=== PATIENT | male | born 1965 | race Caucasian/White ===

== ENCOUNTER 2021-06-24 09:46 | Observation (INO) | payer OTHER ==
[~2021-06-24] VITALS: Ht 182.9 cm; Wt 123.8 kg
[~2021-06-24 09:46] MED LIST: LISINOPRIL10 MG PO; OMEPRAZOLE40 MG PO
[2021-06-24] MEDS ORDERED: ASPIRIN 81 MG CHEW TAB PO NR (10:15)
[2021-06-24] MEDS ORDERED: ENOXAPARIN SODIUM INJ 100 MG/ML SYR SC NR (10:15)
[2021-06-24] MEDS: DILTIAZEM HCL 5 MG/ML 5 ML VIAL IV NR ×3 (10:45→11:10)
[2021-06-24] MEDS ORDERED: ASPIRIN 81 MG ENTERIC COATED PO ONE (10:47)
[2021-06-24] MEDS ORDERED: METOPROLOL TARTRATE INJ 1 MG/ML VIAL ONE (10:56)
[2021-06-24] MEDS ORDERED: SODIUM CHLORIDE 0.9% 1000ML 1,000 ML ONE (10:56)
[2021-06-24 11:00] LABS: HEMATOCRIT 42.9 % (38.2-49.6); HEMOGLOBIN 13.8 g/dL (14.0-18.0); MEAN CORPUSCULAR VOLUME 89.4 fL (81-99)
[2021-06-24 11:01] LABS: BASOPHILS # (AUTO) 0.1 (0.0-0.1); EOSINOPHILS # (AUTO) 0.2 (0.0-0.4); EOSINOPHILS % 1.9 % (0.0-6.0); LYMPHOCYTES # (AUTO) 2.7 (1.0-3.2); LYMPHOCYTES % 34.1 % (18.0-39.1); MEAN CORPUSCULAR HEMOGLOBIN 28.8 pg (28-32); MEAN CORPUSCULAR HGB CONC 32.2 g/dL (31-35); MONOCYTES # (AUTO) 0.6 (0.2-0.8); NEUTROPHILS # (AUTO) 4.3 (2.1-6.9); NEUTROPHILS % 54.7 % (38.7-80.0); PLATELET COUNT 218 x10e3/uL (140-360)
[2021-06-24 11:10] LABS: INR 1.04; PARTIAL THROMBOPLASTIN TIME 28.9 seconds (23.8-35.5); PROTHROMBIN TIME 13.8 seconds (11.9-14.5)
[2021-06-24] MEDS: SODIUM CHLORIDE 0.9% 1000ML 1,000 ML IV SCH ×3 (11:10→15:51)
[2021-06-24] MEDS ORDERED: METOPROLOL TARTRATE INJ 1 MG/ML VIAL IV NR ×2 (11:15→13:15)
[2021-06-24 12:10] LABS: ANION GAP 13.9 mmol/L (8-16); CALCIUM 8.9 mg/dL (8.4-10.2); CREATININE, SERUM 1.17 mg/dL (0.72-1.25); MAGNESIUM 1.9 MG/DL (1.3-2.1); POTASSIUM 3.9 mmol/L (3.5-5.1)
[2021-06-24 12:11] LABS: ALBUMIN/GLOBULIN RATIO 1.1 (0.8-2.0); CREATINE KINASE MB 5.3 ng/mL (0-5.0); THYROID STIMULATING HORMONE 2.717 uIU/mL (0.350-4.940)
[2021-06-24] MEDS ORDERED: METOPROLOL TARTRATE 25 MG TAB PO NR (13:15)
[2021-06-24] MEDS ORDERED: ONDANSETRON HCL INJ 2MG/ML 2ML 2 MG/ML VIAL IV PRN (13:30)
[2021-06-24] MEDS ORDERED: METOPROLOL TARTRATE 25 MG TAB PO SCH (14:00)
[2021-06-24 15:19] VITALS: BP 134/108
[2021-06-24 15:26] VITALS: BP 134/104
[2021-06-24 16:58] VITALS: BP 161/106
[2021-06-24] MEDS: AMIODARONE HCL 200 MG TAB PO SCH (16:59)
[2021-06-24] MEDS ORDERED: METOPROLOL TARTRATE 50 MG TAB PO SCH (17:00)
[2021-06-24 18:16] LABS: CREATINE KINASE MB 5.1 ng/mL (0-5.0)
[2021-06-24 20:00] VITALS: BP 162/113
[2021-06-24 21:00] VITALS: BP 162/113
[2021-06-24] MEDS: ENOXAPARIN SODIUM INJ 100 MG/ML SYR SC SCH (22:30)
[2021-06-25] VITALS: BP 136/93
[2021-06-25] MEDS: METOPROLOL TARTRATE 50 MG TAB PO SCH ×2 (00:33→08:31)
[2021-06-25 04:00] VITALS: BP 123/88
[2021-06-25 06:18] LABS: BASOPHILS # (AUTO) 0.1 (0.0-0.1); BASOPHILS % 0.9 % (0.0-1.0); EOSINOPHILS # (AUTO) 0.2 (0.0-0.4); EOSINOPHILS % 2.8 % (0.0-6.0); HEMATOCRIT 42.6 % (38.2-49.6); HEMOGLOBIN 13.8 g/dL (14.0-18.0); LYMPHOCYTES # (AUTO) 2.8 (1.0-3.2); LYMPHOCYTES % 40.8 % (18.0-39.1); MEAN CORPUSCULAR HEMOGLOBIN 28.4 pg (28-32); MEAN CORPUSCULAR HGB CONC 32.4 g/dL (31-35); MEAN CORPUSCULAR VOLUME 87.7 fL (81-99); MONOCYTES # (AUTO) 0.4 (0.2-0.8); MONOCYTES % 6.1 % (4.4-11.3); NEUTROPHILS # (AUTO) 3.4 (2.1-6.9); NEUTROPHILS % 49.1 % (38.7-80.0); PLATELET COUNT 213 x10e3/uL (140-360); RED BLOOD COUNT 4.86 x10e6/uL (4.3-5.7); RED CELL DISTRIBUTION WIDTH 12.8 % (11.7-14.4)
[2021-06-25 07:46] LABS: ALBUMIN 3.7 g/dL (3.5-5.0); ALBUMIN/GLOBULIN RATIO 1.2 (0.8-2.0); ANION GAP 12.9 mmol/L (8-16); CALCIUM 8.5 mg/dL (8.4-10.2); CHOL/HDL RATIO 3.6 (3.9-4.7); POTASSIUM 3.9 mmol/L (3.5-5.1)
[2021-06-25 07:52] VITALS: BP 147/97
[2021-06-25 07:58] VITALS: BP 147/97
[2021-06-25] MEDS: ENOXAPARIN SODIUM INJ 100 MG/ML SYR SC SCH (08:31)
[2021-06-25] MEDS: AMIODARONE HCL 200 MG TAB PO SCH (08:31)
[2021-06-25] MEDS ORDERED: ASPIRIN 81 MG ENTERIC COATED PO SCH ×2 (09:00)
[2021-06-25 09:53] VITALS: BP 147/97
[2021-06-25 11:02] VITALS: BP 145/99
[2021-06-25] MEDS ORDERED: ASPIRIN EC81 MG PO (12:01)
[2021-06-25] MEDS ORDERED: ONDANSETRON HCL 4 MG ORAL DISINTEGRATING TAB PO PRN (13:30)
[2021-06-25] MEDS ORDERED: METOPROLOL TARTRATE 50 MG TAB PO SCH (17:00)
[2021-06-26] MEDS ORDERED: AMIODARONE HCL 200 MG TAB PO SCH (09:00)
== END 2021-06-25 14:10 | disposition home or self-care (01) ==
LOC: ER 10:00 → ERHOLD 13:41 → INTOOBSV 13:41 → MED/SURG 15:03
PROVIDERS: ADMIT Internal Medicine; ATTEND Internal Medicine
DX: I48.0 Paroxysmal atrial fibrillation (principal); Z20.822 Contact with and (suspected) exposure to COVID-19; I10 Essential (primary) hypertension; Z87.891 Personal history of nicotine dependence; E66.9 Obesity, unspecified; Z68.37 Body mass index [BMI] 37.0-37.9, adult
CPT/HCPCS: 36415 ×2; 71045; 80053 ×2; 80061; 82550 ×2; 82553 ×2; 83735; 83880; 84443; 84484 ×2; 85025 ×2; 85610; 85730; 93005; 93306; 99284; G0378 ×2; J1650 ×2; J7030; U0002

== ENCOUNTER 2022-04-10 20:12 | Inpatient (IN) | payer OTHER ==
[~2022-04-10] VITALS: Ht 182.9 cm; Wt 122.5 kg
[~2022-04-10 20:12] MED LIST changes: +ASPIRIN EC81 MG PO
[2022-04-10] MEDS ORDERED: IBUPROFEN 600 MG TAB PO STA (20:51)
[2022-04-10 20:55] LABS: BASOPHILS % 0.3 % (0.0-1.0); EOSINOPHILS % 0.1 % (0.0-6.0); HEMATOCRIT 39.3 % (38.2-49.6); HEMOGLOBIN 13.1 g/dL (14.0-18.0); LYMPHOCYTES # (AUTO) 2.1 (1.0-3.2); LYMPHOCYTES % 28.1 % (18.0-39.1); MEAN CORPUSCULAR HEMOGLOBIN 28.7 pg (28-32); MEAN CORPUSCULAR HGB CONC 33.3 g/dL (31-35); MONOCYTES # (AUTO) 0.6 (0.2-0.8); MONOCYTES % 7.5 % (4.4-11.3); NEUTROPHILS # (AUTO) 4.7 (2.1-6.9); NEUTROPHILS % 63.3 % (38.7-80.0); PLATELET COUNT 272 x10e3/uL (140-360); RED BLOOD COUNT 4.57 x10e6/uL (4.3-5.7); RED CELL DISTRIBUTION WIDTH 13.7 % (11.7-14.4)
[2022-04-10 21:08] LABS: ALBUMIN 2.7 g/dL (3.5-5.0); ALBUMIN/GLOBULIN RATIO 0.5 (0.8-2.0); ANION GAP 17.3 mmol/L (8-16); CALCIUM 8.5 mg/dL (8.4-10.2); CREATININE, SERUM 0.87 mg/dL (0.72-1.25); POTASSIUM 3.3 mmol/L (3.5-5.1)
[2022-04-10 21:15] LABS: CREATINE KINASE MB 1.4 ng/mL (0-5.0)
[2022-04-10] MEDS ORDERED: SODIUM CHLORIDE 0.9% 1000ML 1,000 ML IV STA ×2 (21:31→21:42)
[2022-04-10 21:38] LABS: LYMPHOCYTES % (MANUAL) 27 % (19-48); MONOCYTES % (MANUAL) 6 % (3.4-9.0); NEUTROPHILS % (MANUAL) 64 % (40-74)
[2022-04-10 21:39] LABS: PLATELET ESTIMATE ADEQUATE; PLATELET MORPHOLOGY COMMENT FEW LARGE; RBC MORPHOLOGY COMMENT NORMAL
[2022-04-10 21:46] LABS: AMPHETAMINES SCREEN,URINE NEGATIVE (NEGATIVE); BENZODIAZEPINES SCREEN,URINE NEGATIVE (NEGATIVE); CLARITY,URINE SL CLOUDY (CLEAR); COLOR,URINE AMBER (YELLOW); KETONES,URINE TRACE (NEGATIVE); LEUKOCYTE ESTERASE ,URINE NEGATIVE (NEGATIVE); NITRITE,URINE NEGATIVE (NEGATIVE); PHENCYCLIDINE SCREEN,URINE NEGATIVE (NEGATIVE); PROTEIN,URINE DIPSTICK 2+ (NEGATIVE)
[2022-04-10 21:59] LABS: AMORPHOUS SEDIMENT,URINE FEW (FEW); BACTERIA,URINE FEW /HPF; EPITHELIAL CELLS,URINE FEW /LPF; MUCUS,URINE MANY (RARE); RBC,URINE 0-5 /HPF (0-5); WBC,URINE (MAN) 0-5 /HPF (0-5)
[2022-04-11] VITALS (10 sets, daily range): BP systolic 144–172; BP diastolic 70–127
[2022-04-11] MEDS: SODIUM CHLORIDE 0.9% 1000ML 1,000 ML IV SCH ×3 (01:23→15:15)
[2022-04-11] MEDS ORDERED: METOPROLOL SUC200 MG PO (02:32)
[2022-04-11] MEDS: METOPROLOL TARTRATE INJ 1 MG/ML VIAL IV PRN ×3 (06:30→07:25)
[2022-04-11 08:27] LABS: BASOPHILS % 0.4 % (0.0-1.0); EOSINOPHILS # (AUTO) 0.1 (0.0-0.4); HEMATOCRIT 38.1 % (38.2-49.6); HEMOGLOBIN 12.4 g/dL (14.0-18.0); LYMPHOCYTES # (AUTO) 1.4 (1.0-3.2); LYMPHOCYTES % 20.6 % (18.0-39.1); MEAN CORPUSCULAR HEMOGLOBIN 28.6 pg (28-32); MEAN CORPUSCULAR HGB CONC 32.5 g/dL (31-35); MEAN CORPUSCULAR VOLUME 87.8 fL (81-99); MONOCYTES # (AUTO) 0.5 (0.2-0.8); NEUTROPHILS # (AUTO) 4.9 (2.1-6.9); NEUTROPHILS % 70.6 % (38.7-80.0); PLATELET COUNT 262 x10e3/uL (140-360); RED BLOOD COUNT 4.34 x10e6/uL (4.3-5.7); RED CELL DISTRIBUTION WIDTH 13.8 % (11.7-14.4)
[2022-04-11 08:57] LABS: ALBUMIN 2.6 g/dL (3.5-5.0); ALBUMIN/GLOBULIN RATIO 0.5 (0.8-2.0); ANION GAP 13.5 mmol/L (8-16); CALCIUM 8.2 mg/dL (8.4-10.2); CREATININE, SERUM 0.77 mg/dL (0.72-1.25); POTASSIUM 3.5 mmol/L (3.5-5.1)
[2022-04-11 08:58] LABS: CREATINE KINASE MB 2.5 ng/mL (0-5.0)
[2022-04-11] MEDS ORDERED: METOPROLOL SUCCINATE 50 MG TAB XL PO SCH (09:00)
[2022-04-11] MEDS: ASPIRIN 81 MG ENTERIC COATED PO SCH (09:22)
[2022-04-11] MEDS: PANTOPRAZOLE SOD 40 MG TABEC PO SCH (09:23)
[2022-04-11] MEDS ORDERED: SODIUM CHLORIDE 0.9% 250ML 500 ML ONE (09:25)
[2022-04-11] MEDS ORDERED: GUAIFENESIN/DEXTROMETHORPHAN LIQD 5 ML UDC PO PRN (12:45)
[2022-04-11] MEDS ORDERED: ACETAMINOPHEN 325 MG TAB PO PRN (12:45)
[2022-04-11] MEDS ORDERED: ONDANSETRON HCL INJ 2MG/ML 2ML 2 MG/ML VIAL IV PRN (12:45)
[2022-04-11] MEDS ORDERED: POTASSIUM CHLORIDE 20 MEQ TAB CR PO NR (13:00)
[2022-04-11] MEDS: METOPROLOL SUCCINATE 50 MG TAB XL PO SCH (13:30)
[2022-04-11] MEDS: ENOXAPARIN SODIUM INJ 100 MG/ML SYR SC SCH (13:59)
[2022-04-11 17:40] LABS: CREATINE KINASE MB 1.5 ng/mL (0-5.0)
[2022-04-11] MEDS: HYDRALAZINE HCL 20 MG/ML VIAL IV PRN (20:10)
[2022-04-11] MEDS: LISINOPRIL 10 MG TAB PO SCH (20:11)
[2022-04-11] MEDS ORDERED: MELATONIN 3 MG TAB PO PRN (21:00)
[2022-04-12] VITALS (15 sets, daily range): BP systolic 119–155; BP diastolic 67–107
[2022-04-12] MEDS: ENOXAPARIN SODIUM INJ 100 MG/ML SYR SC SCH ×2 (02:49→14:00)
[2022-04-12] MEDS: SODIUM CHLORIDE 0.9% 1000ML 1,000 ML IV SCH (06:26)
[2022-04-12 07:07] LABS: BASOPHILS % 0.6 % (0.0-1.0); EOSINOPHILS % 0.6 % (0.0-6.0); HEMATOCRIT 37.3 % (38.2-49.6); HEMOGLOBIN 12.1 g/dL (14.0-18.0); LYMPHOCYTES # (AUTO) 1.3 (1.0-3.2); LYMPHOCYTES % 18.4 % (18.0-39.1); MEAN CORPUSCULAR HEMOGLOBIN 28.3 pg (28-32); MEAN CORPUSCULAR HGB CONC 32.4 g/dL (31-35); MEAN CORPUSCULAR VOLUME 87.1 fL (81-99); MONOCYTES # (AUTO) 0.5 (0.2-0.8); NEUTROPHILS # (AUTO) 5.1 (2.1-6.9); NEUTROPHILS % 72.8 % (38.7-80.0); PLATELET COUNT 299 x10e3/uL (140-360); RED BLOOD COUNT 4.28 x10e6/uL (4.3-5.7)
[2022-04-12 07:32] LABS: MAGNESIUM 1.9 MG/DL (1.3-2.1)
[2022-04-12 07:44] LABS: ALBUMIN 2.4 g/dL (3.5-5.0); ALBUMIN/GLOBULIN RATIO 0.5 (0.8-2.0); ANION GAP 17.5 mmol/L (8-16); CALCIUM 8.4 mg/dL (8.4-10.2); CREATININE, SERUM 0.78 mg/dL (0.72-1.25); POTASSIUM 3.5 mmol/L (3.5-5.1)
[2022-04-12 07:45] LABS: FREE THYROXINE INDEX 2.1443 (1.4-3.8); THYROID STIMULATING HORMONE 1.744 uIU/mL (0.350-4.940)
[2022-04-12] MEDS ORDERED: DIGOXIN 0.25 MG TAB PO ONE (08:00)
[2022-04-12] MEDS ORDERED: DILTIAZEM HCL 60 MG TAB PO SCH (08:00)
[2022-04-12] MEDS: MULTIVITAMINS/MINERALS TAB PO SCH (08:05)
[2022-04-12] MEDS: ASPIRIN 81 MG ENTERIC COATED PO SCH (08:07)
[2022-04-12] MEDS: METOPROLOL SUCCINATE 50 MG TAB XL PO SCH (08:09)
[2022-04-12] MEDS: PANTOPRAZOLE SOD 40 MG TABEC PO SCH (08:09)
[2022-04-12] MEDS ORDERED: METHYLPREDNISOLONE SOD SUCC 125 MG/2ML VIAL IV NR (09:15)
[2022-04-12] MEDS: IPRATROPIUM BROMIDE 0.02% 2.5 ML NEB NEB SCH ×2 (15:05→18:55)
[2022-04-12] MEDS: DILTIAZEM HCL 60 MG TAB PO SCH ×2 (16:15→21:19)
[2022-04-12] MEDS ORDERED: POTASSIUM CHLORIDE 20 MEQ TAB CR PO NR (16:30)
[2022-04-12] MEDS ORDERED: FUROSEMIDE INJ 10 MG/ML 4 ML VIAL IV NR (16:30)
[2022-04-12] MEDS: LISINOPRIL 10 MG TAB PO SCH (21:19)
[2022-04-13] VITALS (33 sets, daily range): BP systolic 115–164; BP diastolic 71–107
[2022-04-13] MEDS: ENOXAPARIN SODIUM INJ 100 MG/ML SYR SC SCH ×3 (01:49→17:06)
[2022-04-13 04:50] LABS: BASOPHILS % 0.1 % (0.0-1.0); HEMATOCRIT 35.1 % (38.2-49.6); HEMOGLOBIN 11.4 g/dL (14.0-18.0); LYMPHOCYTES % 10.4 % (18.0-39.1); MEAN CORPUSCULAR HGB CONC 32.5 g/dL (31-35); MEAN CORPUSCULAR VOLUME 86.2 fL (81-99); MONOCYTES # (AUTO) 0.5 (0.2-0.8); MONOCYTES % 4.8 % (4.4-11.3); NEUTROPHILS % 84.2 % (38.7-80.0); PLATELET COUNT 373 x10e3/uL (140-360); RED BLOOD COUNT 4.07 x10e6/uL (4.3-5.7); RED CELL DISTRIBUTION WIDTH 13.7 % (11.7-14.4)
[2022-04-13 05:10] LABS: ALBUMIN 2.2 g/dL (3.5-5.0); ALBUMIN/GLOBULIN RATIO 0.4 (0.8-2.0); ANION GAP 14.8 mmol/L (8-16); CALCIUM 8.3 mg/dL (8.4-10.2); CREATININE, SERUM 0.79 mg/dL (0.72-1.25); POTASSIUM 3.8 mmol/L (3.5-5.1)
[2022-04-13] MEDS: DILTIAZEM HCL 60 MG TAB PO SCH ×3 (05:24→21:35)
[2022-04-13 05:37] LABS: CHOL/HDL RATIO 4.3 (3.9-4.7)
[2022-04-13 05:57] LABS: THYROID STIMULATING HORMONE 1.48 uIU/mL (0.350-4.940)
[2022-04-13] MEDS ORDERED: POTASSIUM CHLORIDE 20 MEQ TAB CR PO ONE (07:00)
[2022-04-13] MEDS: IPRATROPIUM BROMIDE 0.02% 2.5 ML NEB NEB SCH ×3 (07:15→18:54)
[2022-04-13] MEDS: MULTIVITAMINS/MINERALS TAB PO SCH (08:11)
[2022-04-13] MEDS: PANTOPRAZOLE SOD 40 MG TABEC PO SCH (08:11)
[2022-04-13] MEDS: ASPIRIN 81 MG ENTERIC COATED PO SCH (08:11)
[2022-04-13] MEDS: METOPROLOL SUCCINATE 50 MG TAB XL PO SCH (08:12)
[2022-04-13] MEDS: DIGOXIN 0.25 MG TAB PO SCH (08:12)
[2022-04-13] MEDS ORDERED: Vancomycin IV 1 GM in SODIUM CHLORIDE 0.9% 250ML 250 ML IV ONE (10:30)
[2022-04-13] MEDS: METHYLPREDNISOLONE SOD SUCC 40 MG/ML VIAL 1ML IV SCH (18:37)
[2022-04-13] MEDS: LISINOPRIL 10 MG TAB PO SCH (20:02)
[2022-04-14] VITALS (24 sets, daily range): BP systolic 116–183; BP diastolic 63–113
[2022-04-14] MEDS: METHYLPREDNISOLONE SOD SUCC 40 MG/ML VIAL 1ML IV SCH ×2 (02:23→10:45)
[2022-04-14 05:03] LABS: BASOPHILS % 0.1 % (0.0-1.0); HEMATOCRIT 36.4 % (38.2-49.6); HEMOGLOBIN 11.8 g/dL (14.0-18.0); LYMPHOCYTES # (AUTO) 0.7 (1.0-3.2); LYMPHOCYTES % 5.8 % (18.0-39.1); MEAN CORPUSCULAR HEMOGLOBIN 28.3 pg (28-32); MEAN CORPUSCULAR HGB CONC 32.4 g/dL (31-35); MEAN CORPUSCULAR VOLUME 87.3 fL (81-99); MONOCYTES # (AUTO) 0.4 (0.2-0.8); MONOCYTES % 3.5 % (4.4-11.3); NEUTROPHILS # (AUTO) 10.9 (2.1-6.9); NEUTROPHILS % 89.8 % (38.7-80.0); PLATELET COUNT 430 x10e3/uL (140-360); RED BLOOD COUNT 4.17 x10e6/uL (4.3-5.7); RED CELL DISTRIBUTION WIDTH 14.1 % (11.7-14.4)
[2022-04-14 05:24] LABS: ALBUMIN 2.1 g/dL (3.5-5.0); ALBUMIN/GLOBULIN RATIO 0.4 (0.8-2.0); ANION GAP 14.4 mmol/L (8-16); CALCIUM 8.2 mg/dL (8.4-10.2); CREATININE, SERUM 0.71 mg/dL (0.72-1.25); POTASSIUM 4.4 mmol/L (3.5-5.1)
[2022-04-14] MEDS: DILTIAZEM HCL 60 MG TAB PO SCH ×3 (05:36→22:26)
[2022-04-14] MEDS: ENOXAPARIN SODIUM INJ 100 MG/ML SYR SC SCH ×2 (05:36→18:44)
[2022-04-14] MEDS: IPRATROPIUM BROMIDE 0.02% 2.5 ML NEB NEB SCH ×3 (07:00→18:31)
[2022-04-14] MEDS: PANTOPRAZOLE SOD 40 MG TABEC PO SCH (08:30)
[2022-04-14] MEDS: FUROSEMIDE INJ 10 MG/ML 2 ML VIAL IV SCH (09:01)
[2022-04-14] MEDS: DIGOXIN 0.25 MG TAB PO SCH (09:02)
[2022-04-14] MEDS: MULTIVITAMINS/MINERALS TAB PO SCH (09:02)
[2022-04-14] MEDS: ASPIRIN 81 MG ENTERIC COATED PO SCH (09:03)
[2022-04-14] MEDS: METOPROLOL SUCCINATE 50 MG TAB XL PO SCH (09:03)
[2022-04-14] MEDS: HYDRALAZINE HCL 20 MG/ML VIAL IV PRN (19:16)
[2022-04-14] MEDS: LISINOPRIL 10 MG TAB PO SCH (21:20)
[2022-04-15] VITALS (25 sets, daily range): BP systolic 137–189; BP diastolic 85–112
[2022-04-15] MEDS: HYDRALAZINE HCL 20 MG/ML VIAL IV PRN (00:37)
[2022-04-15] MEDS ORDERED: METOPROLOL TARTRATE INJ 1 MG/ML VIAL IV PRN (02:30)
[2022-04-15] MEDS ORDERED: METOPROLOL TARTRATE INJ 1 MG/ML VIAL ONE (02:53)
[2022-04-15] MEDS: ENOXAPARIN SODIUM INJ 100 MG/ML SYR SC SCH ×2 (05:27→16:43)
[2022-04-15] MEDS: DILTIAZEM HCL 60 MG TAB PO SCH ×3 (06:02→21:08)
[2022-04-15] MEDS: IPRATROPIUM BROMIDE 0.02% 2.5 ML NEB NEB SCH ×3 (07:02→19:10)
[2022-04-15 07:54] LABS: BASOPHILS % 0.2 % (0.0-1.0); HEMATOCRIT 41.4 % (38.2-49.6); HEMOGLOBIN 13.2 g/dL (14.0-18.0); LYMPHOCYTES # (AUTO) 1.5 (1.0-3.2); LYMPHOCYTES % 11.2 % (18.0-39.1); MEAN CORPUSCULAR HEMOGLOBIN 28.1 pg (28-32); MEAN CORPUSCULAR HGB CONC 31.9 g/dL (31-35); MEAN CORPUSCULAR VOLUME 88.1 fL (81-99); MONOCYTES # (AUTO) 0.9 (0.2-0.8); MONOCYTES % 6.6 % (4.4-11.3); NEUTROPHILS # (AUTO) 10.8 (2.1-6.9); NEUTROPHILS % 81.2 % (38.7-80.0); PLATELET COUNT 529 x10e3/uL (140-360); RED CELL DISTRIBUTION WIDTH 14.2 % (11.7-14.4)
[2022-04-15] MEDS: PANTOPRAZOLE SOD 40 MG TABEC PO SCH (08:24)
[2022-04-15] MEDS: LISINOPRIL 10 MG TAB PO SCH ×2 (08:25→16:43)
[2022-04-15] MEDS: FUROSEMIDE INJ 10 MG/ML 2 ML VIAL IV SCH (08:25)
[2022-04-15] MEDS: ASPIRIN 81 MG ENTERIC COATED PO SCH (08:25)
[2022-04-15] MEDS: METOPROLOL SUCCINATE 50 MG TAB XL PO SCH (08:26)
[2022-04-15] MEDS: DIGOXIN 0.25 MG TAB PO SCH (08:26)
[2022-04-15] MEDS: MULTIVITAMINS/MINERALS TAB PO SCH (08:26)
[2022-04-15 08:28] LABS: ALBUMIN 2.3 g/dL (3.5-5.0); ALBUMIN/GLOBULIN RATIO 0.5 (0.8-2.0); CALCIUM 8.6 mg/dL (8.4-10.2); CREATININE, SERUM 0.69 mg/dL (0.72-1.25)
[2022-04-15] MEDS ORDERED: FUROSEMIDE INJ 10 MG/ML 4 ML VIAL IV ONE (08:45)
[2022-04-15] MEDS: Vancomycin IV 1.25 GM in SODIUM CHLORIDE 0.9% 250ML 250 ML IV SCH ×2 (10:53→21:08)
[2022-04-16] VITALS (26 sets, daily range): BP systolic 130–175; BP diastolic 82–120
[2022-04-16] MEDS: ENOXAPARIN SODIUM INJ 100 MG/ML SYR SC SCH ×2 (04:50→17:14)
[2022-04-16 04:57] LABS: BASOPHILS % 0.1 % (0.0-1.0); EOSINOPHILS # (AUTO) 0.1 (0.0-0.4); EOSINOPHILS % 1.1 % (0.0-6.0); HEMATOCRIT 42.8 % (38.2-49.6); HEMOGLOBIN 13.7 g/dL (14.0-18.0); LYMPHOCYTES # (AUTO) 2.1 (1.0-3.2); LYMPHOCYTES % 20.9 % (18.0-39.1); MEAN CORPUSCULAR HEMOGLOBIN 28.1 pg (28-32); MEAN CORPUSCULAR VOLUME 87.7 fL (81-99); MONOCYTES # (AUTO) 0.8 (0.2-0.8); MONOCYTES % 8.3 % (4.4-11.3); NEUTROPHILS # (AUTO) 6.9 (2.1-6.9); NEUTROPHILS % 68.5 % (38.7-80.0); PLATELET COUNT 536 x10e3/uL (140-360); RED BLOOD COUNT 4.88 x10e6/uL (4.3-5.7); RED CELL DISTRIBUTION WIDTH 14.2 % (11.7-14.4)
[2022-04-16] MEDS: DILTIAZEM HCL 60 MG TAB PO SCH ×3 (05:06→21:09)
[2022-04-16 05:16] LABS: CALCIUM 8.2 mg/dL (8.4-10.2); CREATININE, SERUM 0.77 mg/dL (0.72-1.25); MAGNESIUM 2.2 MG/DL (1.3-2.1)
[2022-04-16] MEDS: IPRATROPIUM BROMIDE 0.02% 2.5 ML NEB NEB SCH ×3 (07:10→19:05)
[2022-04-16] MEDS: PANTOPRAZOLE SOD 40 MG TABEC PO SCH (07:59)
[2022-04-16] MEDS: FUROSEMIDE INJ 10 MG/ML 4 ML VIAL IV SCH (07:59)
[2022-04-16] MEDS: Vancomycin IV 1.25 GM in SODIUM CHLORIDE 0.9% 250ML 250 ML IV SCH ×2 (08:01→21:09)
[2022-04-16] MEDS: DIGOXIN 0.25 MG TAB PO SCH (08:01)
[2022-04-16] MEDS: ASPIRIN 81 MG ENTERIC COATED PO SCH (08:01)
[2022-04-16] MEDS: MULTIVITAMINS/MINERALS TAB PO SCH (08:02)
[2022-04-16] MEDS: LISINOPRIL 10 MG TAB PO SCH (08:03)
[2022-04-16] MEDS: METOPROLOL SUCCINATE 50 MG TAB XL PO SCH (08:03)
[2022-04-16] MEDS ORDERED: LISINOPRIL 10 MG TAB PO ONE (09:00)
[2022-04-16] MEDS: LISINOPRIL 20 MG TAB PO SCH (17:14)
[2022-04-17] VITALS (24 sets, daily range): BP systolic 104–161; BP diastolic 64–117
[2022-04-17] MEDS: ENOXAPARIN SODIUM INJ 100 MG/ML SYR SC SCH ×2 (04:38→17:19)
[2022-04-17 05:27] LABS: BASOPHILS % 0.1 % (0.0-1.0); EOSINOPHILS # (AUTO) 0.3 (0.0-0.4); EOSINOPHILS % 2.7 % (0.0-6.0); HEMATOCRIT 43.1 % (38.2-49.6); LYMPHOCYTES # (AUTO) 1.9 (1.0-3.2); LYMPHOCYTES % 19.8 % (18.0-39.1); MEAN CORPUSCULAR HEMOGLOBIN 28.4 pg (28-32); MEAN CORPUSCULAR HGB CONC 32.5 g/dL (31-35); MEAN CORPUSCULAR VOLUME 87.4 fL (81-99); MONOCYTES # (AUTO) 0.8 (0.2-0.8); NEUTROPHILS # (AUTO) 6.6 (2.1-6.9); NEUTROPHILS % 68.4 % (38.7-80.0); PLATELET COUNT 518 x10e3/uL (140-360); RED BLOOD COUNT 4.93 x10e6/uL (4.3-5.7)
[2022-04-17 05:47] LABS: ALBUMIN 2.3 g/dL (3.5-5.0); ALBUMIN/GLOBULIN RATIO 0.5 (0.8-2.0); ANION GAP 12.8 mmol/L (8-16); CALCIUM 8.3 mg/dL (8.4-10.2); CREATININE, SERUM 0.81 mg/dL (0.72-1.25); POTASSIUM 3.8 mmol/L (3.5-5.1)
[2022-04-17] MEDS: DILTIAZEM HCL 60 MG TAB PO SCH ×3 (06:10→21:16)
[2022-04-17] MEDS: IPRATROPIUM BROMIDE 0.02% 2.5 ML NEB NEB SCH ×3 (07:35→18:30)
[2022-04-17] MEDS: DIGOXIN 0.25 MG TAB PO SCH (09:01)
[2022-04-17] MEDS: MULTIVITAMINS/MINERALS TAB PO SCH (09:01)
[2022-04-17] MEDS: ASPIRIN 81 MG ENTERIC COATED PO SCH (09:01)
[2022-04-17] MEDS: PANTOPRAZOLE SOD 40 MG TABEC PO SCH (09:01)
[2022-04-17] MEDS: FUROSEMIDE INJ 10 MG/ML 4 ML VIAL IV SCH (09:01)
[2022-04-17] MEDS: LISINOPRIL 20 MG TAB PO SCH ×2 (09:02→17:19)
[2022-04-17] MEDS: METOPROLOL SUCCINATE 50 MG TAB XL PO SCH (09:09)
[2022-04-17] MEDS: Vancomycin IV 1.25 GM in SODIUM CHLORIDE 0.9% 250ML 250 ML IV SCH ×2 (09:10→20:53)
[2022-04-18] VITALS (22 sets, daily range): BP systolic 109–159; BP diastolic 68–102
[2022-04-18] MEDS: ENOXAPARIN SODIUM INJ 100 MG/ML SYR SC SCH (05:11)
[2022-04-18] MEDS: DILTIAZEM HCL 60 MG TAB PO SCH ×3 (05:12→21:14)
[2022-04-18] MEDS: IPRATROPIUM BROMIDE 0.02% 2.5 ML NEB NEB SCH ×3 (07:30→22:30)
[2022-04-18 07:39] LABS: ALBUMIN 2.4 g/dL (3.5-5.0); ALBUMIN/GLOBULIN RATIO 0.5 (0.8-2.0); ANION GAP 14.1 mmol/L (8-16); CALCIUM 8.8 mg/dL (8.4-10.2); CREATININE, SERUM 0.86 mg/dL (0.72-1.25); POTASSIUM 4.1 mmol/L (3.5-5.1)
[2022-04-18] MEDS: LISINOPRIL 20 MG TAB PO SCH ×2 (09:15→18:25)
[2022-04-18] MEDS: METOPROLOL SUCCINATE 50 MG TAB XL PO SCH (09:15)
[2022-04-18] MEDS: ASPIRIN 81 MG ENTERIC COATED PO SCH (09:15)
[2022-04-18] MEDS: Vancomycin IV 1.25 GM in SODIUM CHLORIDE 0.9% 250ML 250 ML IV SCH ×2 (09:15→21:14)
[2022-04-18] MEDS: PANTOPRAZOLE SOD 40 MG TABEC PO SCH (09:15)
[2022-04-18] MEDS: FUROSEMIDE INJ 10 MG/ML 4 ML VIAL IV SCH (09:15)
[2022-04-18] MEDS: DIGOXIN 0.25 MG TAB PO SCH (09:15)
[2022-04-18] MEDS: MULTIVITAMINS/MINERALS TAB PO SCH (10:10)
[2022-04-18] MEDS: APIXABAN 5 MG TABLET PO SCH (18:25)
[2022-04-18] MEDS ORDERED: PIPERACILLIN/TAZOBACTAM 3.375 GM VIAL ONE (23:04)
[2022-04-19] VITALS (13 sets, daily range): BP systolic 101–157; BP diastolic 72–99
[2022-04-19] MEDS: DILTIAZEM HCL 60 MG TAB PO SCH ×4 (06:11→21:33)
[2022-04-19] MEDS: DIGOXIN 0.25 MG TAB PO SCH (07:53)
[2022-04-19] MEDS: Vancomycin IV 1.25 GM in SODIUM CHLORIDE 0.9% 250ML 250 ML IV SCH ×2 (07:53→23:05)
[2022-04-19] MEDS: MULTIVITAMINS/MINERALS TAB PO SCH (07:53)
[2022-04-19] MEDS: APIXABAN 5 MG TABLET PO SCH ×2 (07:53→18:18)
[2022-04-19] MEDS: FUROSEMIDE INJ 10 MG/ML 4 ML VIAL IV SCH (07:53)
[2022-04-19] MEDS: ASPIRIN 81 MG ENTERIC COATED PO SCH (07:53)
[2022-04-19] MEDS: PANTOPRAZOLE SOD 40 MG TABEC PO SCH (07:53)
[2022-04-19] MEDS: LISINOPRIL 20 MG TAB PO SCH ×2 (07:54→18:18)
[2022-04-19] MEDS: METOPROLOL SUCCINATE 50 MG TAB XL PO SCH (07:54)
[2022-04-19] MEDS: IPRATROPIUM BROMIDE 0.02% 2.5 ML NEB NEB SCH ×3 (09:28→19:15)
[2022-04-19] MEDS ORDERED: SODIUM CHLORIDE 0.9% 250ML 250 ML ONE (13:18)
[2022-04-19] MEDS ORDERED: SODIUM CHLORIDE 0.9% 500ML 500 ML ONE (23:09)
[2022-04-20] VITALS: BP 116/67
[2022-04-20 04:00] VITALS: BP 131/89
[2022-04-20] MEDS: DILTIAZEM HCL 60 MG TAB PO SCH ×2 (06:00→14:04)
[2022-04-20] MEDS: IPRATROPIUM BROMIDE 0.02% 2.5 ML NEB NEB SCH ×2 (06:37→14:31)
[2022-04-20 06:59] LABS: BASOPHILS % 0.4 % (0.0-1.0); EOSINOPHILS # (AUTO) 0.2 (0.0-0.4); EOSINOPHILS % 2.6 % (0.0-6.0); HEMOGLOBIN 13.6 g/dL (14.0-18.0); LYMPHOCYTES # (AUTO) 1.8 (1.0-3.2); LYMPHOCYTES % 22.6 % (18.0-39.1); MEAN CORPUSCULAR HEMOGLOBIN 28.3 pg (28-32); MEAN CORPUSCULAR HGB CONC 32.4 g/dL (31-35); MEAN CORPUSCULAR VOLUME 87.3 fL (81-99); MONOCYTES # (AUTO) 0.9 (0.2-0.8); MONOCYTES % 10.6 % (4.4-11.3); NEUTROPHILS # (AUTO) 5.1 (2.1-6.9); NEUTROPHILS % 63.2 % (38.7-80.0); PLATELET COUNT 563 x10e3/uL (140-360); RED BLOOD COUNT 4.81 x10e6/uL (4.3-5.7)
[2022-04-20 07:28] LABS: ANION GAP 12.9 mmol/L (8-16); CALCIUM 8.4 mg/dL (8.4-10.2); CREATININE, SERUM 0.93 mg/dL (0.72-1.25); MAGNESIUM 2.1 MG/DL (1.3-2.1); POTASSIUM 3.9 mmol/L (3.5-5.1)
[2022-04-20 08:07] VITALS: BP 129/92
[2022-04-20 08:10] VITALS: BP 129/92
[2022-04-20] MEDS: FUROSEMIDE INJ 10 MG/ML 4 ML VIAL IV SCH (09:01)
[2022-04-20] MEDS: APIXABAN 5 MG TABLET PO SCH (09:02)
[2022-04-20] MEDS: ASPIRIN 81 MG ENTERIC COATED PO SCH (09:02)
[2022-04-20] MEDS: DIGOXIN 0.25 MG TAB PO SCH (09:03)
[2022-04-20] MEDS: MULTIVITAMINS/MINERALS TAB PO SCH (09:03)
[2022-04-20] MEDS: LISINOPRIL 20 MG TAB PO SCH (09:03)
[2022-04-20] MEDS: METOPROLOL SUCCINATE 50 MG TAB XL PO SCH (09:03)
[2022-04-20] MEDS: PANTOPRAZOLE SOD 40 MG TABEC PO SCH (09:04)
[2022-04-20] MEDS ORDERED: LEVOFLOXACIN 500 MG TAB PO SCH (10:30)
[2022-04-20 11:27] VITALS: BP 101/76
[2022-04-20] MEDS ORDERED: LEVOFLOXACIN250 MG PO (13:18)
[2022-04-20] MEDS ORDERED: ELIQUIS5 MG PO (13:18)
[2022-04-20] MEDS ORDERED: LANOXIN250 MCG PO (13:18)
[2022-04-20] MEDS ORDERED: LISINOPRIL20 MG PO (13:18)
[2022-04-20] MEDS ORDERED: ONDANSETRON HCL 4 MG ORAL DISINTEGRATING TAB PO PRN (13:45)
[2022-04-21] MEDS ORDERED: FUROSEMIDE 40 MG TAB PO SCH (09:00)
== END 2022-04-20 15:02 | disposition home or self-care (01) | DRG 193 ==
LOC: ER 20:22 → ERHOLD 23:24 → MED/SURG3 04-11 00:35 → ICU 04-12 18:20 → MED/SURG2 04-19 12:11
PROVIDERS: ADMIT Internal Medicine; ATTEND Internal Medicine
PROC: 5A0935A Assistance with Respiratory Ventilation, Less than 24 Consecutive Hours, High Flow/Velocity Cannula (ICD-10-PCS; principal; 2022-04-12)
PROC: 5A0935A Assistance with Respiratory Ventilation, Less than 24 Consecutive Hours, High Flow/Velocity Cannula (ICD-10-PCS; 2022-04-13)
PROC: 5A0935A Assistance with Respiratory Ventilation, Less than 24 Consecutive Hours, High Flow/Velocity Cannula (ICD-10-PCS; 2022-04-14)
PROC: 5A0935A Assistance with Respiratory Ventilation, Less than 24 Consecutive Hours, High Flow/Velocity Cannula (ICD-10-PCS; 2022-04-15)
PROC: 5A0935A Assistance with Respiratory Ventilation, Less than 24 Consecutive Hours, High Flow/Velocity Cannula (ICD-10-PCS; 2022-04-16)
PROC: 5A0935A Assistance with Respiratory Ventilation, Less than 24 Consecutive Hours, High Flow/Velocity Cannula (ICD-10-PCS; 2022-04-17)
DX: J15.9 Unspecified bacterial pneumonia (principal); J96.01 Acute respiratory failure with hypoxia; E87.1 Hypo-osmolality and hyponatremia; J84.9 Interstitial pulmonary disease, unspecified; I48.91 Unspecified atrial fibrillation; E66.9 Obesity, unspecified; Z68.36 Body mass index [BMI] 36.0-36.9, adult; F17.210 Nicotine dependence, cigarettes, uncomplicated; R59.0 Localized enlarged lymph nodes; E87.6 Hypokalemia; R04.0 Epistaxis; R79.89 Other specified abnormal findings of blood chemistry; Z20.822 Contact with and (suspected) exposure to COVID-19
CPT/HCPCS: 36415; 71045; 71046; 71260; 80048; 80053; 80061; 80162; 80202; 80307; 81001; 82550; 82553; 83605; 83735; 83880; 84436; 84443; 84479; 84484; 85025; 85379; 87040; 87070; 87205; 87299; 87449; 93005; 93306; 94640; 94799; 96361; 99251; 99284; J0360; J0456; J1650; J1940; J2543; J2920; J2930; J3370; J7030; J7040; J7050